=== PATIENT | female | born 1980 | race American Indian/Alaskan Native ===

== ENCOUNTER 2018-06-03 10:18 | Day surgery (SDC) | payer BC ==
[2018-06-03] MEDS ORDERED: NACL 0.9% 1000 ML 1,000 ML IV SCH (11:00)
--- NOTE | 2018-06-03 12:29 | Anesthesia Day of Surgery ---
Anesthesia Day of Surgery - Day of Surgery Patient Examined: Yes Patient H&P Reviewed: Yes Patient is NPO: Yes Beta Blockers: No Cardiac Clearance: No Pulmonary Clearance: No
--- NOTE | 2018-06-03 12:30 | Anesthesia Consultation ---
Anesthesia Consult and Med Hx Date of service: 06/03/18 - Airway Anesthetic Teeth Evaluation: Good ROM Head & Neck: Adequate Mental/Hyoid Distance: Adequate Mallampati Class: Class III Intubation Access Assessment: Good - Pulmonary Exam CTA: Yes - Cardiac Exam Cardiac Exam: No Murmur - Pre-Operative Health Status ASA Pre-Surgery Classification: ASA3 Proposed Anesthetic Plan: MAC - Cardiovascular System Hx Hypertension: Yes - Other Systems Hx Obesity: Yes
[2018-06-03] MEDS ORDERED: VERSED ONE (12:41)
[2018-06-03] MEDS ORDERED: DIPRIVAN 10 MG/ML IV ONE ×2 (12:41)
--- NOTE | 2018-06-03 13:36 | Procedure Note ---
Date of procedure: 06/03/18 Pre-op diagnosis: Abdominal Pain/Dyspepsia/ Diarrhea Post-op diagnosis: other (Mild,Distal Esophagitis/Gastritis/ R/o Celiac disease/R/O Eosinophilic Esophagitis/ R/O Microscopic colitis/R/O Ileitis) Procedure: EGD with Biopsy and Colonoscopy with Biopsy Anesthesia: TESFAYE Surgeon: PARVEEN MARCELINO Estimated blood loss: minimal Pathology: list Specimen disposition: to lab Condition: stable Disposition: same day (Avoid aspirin and NSAID for 5 days. Treat PPI,prn Bentyl,encourage Probiotic and follow up in 1 to 2 weeks ([phone]).)
--- NOTE | 2018-06-03 13:46 | Operative Report ---
PROCEDURE: Esophagogastroduodenoscopy with biopsy. INDICATIONS: This is a 38-year-old -[place] female who has been having some dyspeptic symptoms and some abdominal pain. EGD was done to rule out for any associated peptic ulcer disease or any significant upper GI pathology. DESCRIPTION OF PROCEDURE: Procedure was done after getting informed consent with MAC anesthesia. Instrument was passed through the hypopharynx into the esophagus, which showed some mild distal esophagitis. Stomach showed some antral gastritis. No ulcers were noted in the straight or the retroverted view. The pylorus is patent. Duodenum in the first and second portion appeared normal. Biopsy was done from the second part of the duodenum, the gastric antrum, gastric body as well as angularis incisura to rule out for H. pylori and atrophic gastritis. Biopsy was done from the second part of the duodenum to rule out for celiac disease and from the mid esophagus to rule out eosinophilic esophagitis. There was minimal bleeding from the biopsy sites and no complications associated with the procedure. ASSESSMENT: Dyspepsia mild distal esophagitis and gastritis, rule out celiac disease, rule out eosinophilic esophagitis. PLAN: Plan is to treat the patient with PPI, p.r.n. dose of Bentyl. Encouraged the patient to take probiotic, have the patient avoid aspirin and aspirin-related products for the next few days, and follow up in the office in 1-2 weeks' time. A colonoscopy will also be done because of her complaints of diarrhea. RN, Betsy Stearns was in the room throughout the entirety of the procedure. JOB# [id number] BILL/JEREMY
[2018-06-03 13:52] VITALS: BP 128/78
--- NOTE | 2018-06-03 14:00 | Operative Report ---
PROCEDURE: Colonoscopy. INDICATIONS: A 38-year-old -Citizen Of The [place] female who has been having diarrhea and abdominal pain. Colonoscopy was done to assess for any associated colitis. DESCRIPTION OF PROCEDURE: Procedure was done after getting informed consent with MAC anesthesia. EGD was done prior to the colonoscopy, which showed some mild distal esophagitis and gastritis. Initial rectal exam was unremarkable. Instrument was passed through the rectum onto the cecum, which was identified with ileocecal valve and the appendiceal orifice. Visualization was fair to good. The terminal ileum was intubated showed normal mucosa. Biopsy was done to rule out for possible ileitis. Cecum, ascending colon, transverse colon, descending colon, and sigmoid likewise showed normal mucosa. Random biopsies were done to rule out for possible microscopic colitis. The patient has prior history of hemorrhoidectomy. No hemorrhoids were noted in the retroverted view. There was minimal bleeding from the biopsy sites. No complications associated with the procedure. ASSESSMENT: History of diarrhea, rule out microscopic colitis, rule out ileitis. Prior status post hemorrhoidectomy. Plan is to treat the patient with probiotics and Bentyl. Have the patient avoid aspirin and aspirin-related products for the next few days and follow up in the office in 1-2 weeks' time. Further treatment adjustment will be according to the biopsy findings. RNBetys was in the room throughout the entirety of the procedure. JOB# [id number] BILL/JEREMY
--- NOTE | 2018-06-03 22:03 | Consultation ---
HISTORY OF PRESENT ILLNESS: This is a 38-year-old -[place] female with an underlying history of hypertension, anxiety disorder, status post hemorrhoidectomy back in 2010. She has lately been having some abdominal pain, mainly involving the mid and left abdomen with associated diarrhea suggestive possibly of colitis and also complains of upper abdominal pain and possible peptic ulcer disease. She has had an ultrasound of the gallbladder done, which is essentially unremarkable as was the HIDA scan, it showed visualization of the gallbladder, overruling any type of cystic duct obstruction. Because of the persistent abdominal pain, she has been advised to have an EGD and a colonoscopy done for further assessment. ALLERGIES: No known allergies. SOCIAL HISTORY: Denies history of smoking or alcohol use. No cardiac issues. No flu shots. MEDICATIONS: Nifedipine and Bupropion. PHYSICAL EXAMINATION: GENERAL: She is afebrile. VITAL SIGNS: Blood pressure 131/86, pulse is 65, height is 5 feet 5 inches, weight 183 pounds. HEENT: Shows no JVD. LUNGS: Clear to auscultation. CARDIOVASCULAR: Normal. ABDOMEN: Soft with some mid abdominal epigastric and left lower quadrant tenderness. Bowel sounds present. EXTREMITIES: No pedal edema. NEUROLOGIC: The patient is otherwise alert and oriented. ASSESSMENT AND PLAN: Diarrhea, colitis, abdominal pain, possible peptic ulcer disease, rule out celiac disease, hypertension, status post hemorrhoidectomy. PLAN: To do an EGD and a colonoscopy at [facility] on 06/03/2018. JOB# [id number] BILL/JEREMY
== END 2018-06-03 10:19 | disposition home or self-care (01) ==
LOC: GIO 10:18
DX: K29.70 Gastritis, unspecified, without bleeding (principal); K20.9 Esophagitis, unspecified; K63.89 Other specified diseases of intestine; K22.8 Other specified diseases of esophagus; R19.7 Diarrhea, unspecified; R10.9 Unspecified abdominal pain; I10 Essential (primary) hypertension; E66.9 Obesity, unspecified; Z79.899 Other long term (current) drug therapy; Z68.30 Body mass index [BMI] 30.0-30.9, adult; Z98.890 Other specified postprocedural states
CPT/HCPCS: 43239; 45380; 81025; 88305; 88342; J2250; J2704; J7030